=== PATIENT | male | born 1955 | race African-American/Black ===

== ENCOUNTER 2017-04-07 12:47 | Emergency (ER) | payer MEDICARE, MEDICAID ==
[~2017-04-07] VITALS: Ht 185.4 cm; Wt 136.1 kg
[2017-04-07 13:04] VITALS: BP 117/74
[2017-04-07] MEDS ORDERED: Norco 7.5mg/325mg tab ORAL ONE (13:30)
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
[2017-04-07] MEDS ORDERED: TYLENOL EXTRA500 MG ORAL (14:11)
[2017-04-07] MEDS ORDERED: CYCLOBENZAPRINE10 MG ORAL (14:11)
[2017-04-07] MEDS ORDERED: DIPHENHYDRAMINE25 M3 ORAL (14:23)
[2017-04-07] MEDS ORDERED: PERPHENAZINE4 MG PO (14:23)
[2017-04-07] MEDS ORDERED: RISPERIDONE1 MG ORAL (14:23)
[2017-04-07] MEDS ORDERED: TRAZODONE HCL300 MG ORAL (14:23)
[2017-04-07 14:35] VITALS: BP 121/80
== END 2017-04-07 14:35 | disposition home or self-care (01) ==
LOC: EMR 13:29
DX: S90.111A Contusion of right great toe without damage to nail, initial encounter (principal); T14.8XXA Other injury of unspecified body region, initial encounter; Y04.2XXA Assault by strike against or bumped into by another person, initial encounter; Y92.89 Other specified places as the place of occurrence of the external cause; E11.9 Type 2 diabetes mellitus without complications; M77.31 Calcaneal spur, right foot; M20.5X1 Other deformities of toe(s) (acquired), right foot
CPT/HCPCS: 99284